=== PATIENT | female | born 2000 | race Caucasian/White ===

== ENCOUNTER 2019-05-18 00:24 | Emergency (ER) | payer OTHER ==
[~2019-05-18] VITALS: Ht 185.4 cm; Wt 117.9 kg
[2019-05-18 00:30] VITALS: BP 143/82
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
[2019-05-18] MEDS ORDERED: ULTRAM PO STA (00:59)
--- NOTE | 2019-05-18 01:01 | DIREP ---
PROCEDURE:XRAY FOOT MIN 3 VWS-LT COMPARISON:None. INDICATIONS:crush injury FINDINGS: BONES:Normal. JOINTS:Normal. SOFT TISSUES:Normal. OTHER:No additional findings. CONCLUSION:Normal examination. Dictated by: Familia Rodriguez MD on 05/18/2019 at 00:58 AM
[2019-05-18] MEDS ORDERED: ULTRAM ONE (01:08)
== END 2019-05-18 01:20 | disposition home or self-care (01) ==
LOC: ER 00:24
DX: S97.82XA Crushing injury of left foot, initial encounter (principal); Z88.0 Allergy status to penicillin; Z88.1 Allergy status to other antibiotic agents; W23.0XXA Caught, crushed, jammed, or pinched between moving objects, initial encounter; Y93.89 Activity, other specified; Y92.488 Other paved roadways as the place of occurrence of the external cause; Y99.8 Other external cause status
CPT/HCPCS: 99284; 73630-LT